=== PATIENT | female | born 1965 | race Caucasian/White ===

== ENCOUNTER → 2020-10-26 | Outpatient (CLI) | payer BC | END | disposition home or self-care (01) | LOC: CVU 11:39 | PROVIDERS: ATTEND Specialist | DX: C81.91 Hodgkin lymphoma, unspecified, lymph nodes of head, face, and neck (principal); Z79.899 Other long term (current) drug therapy | CPT/HCPCS: 93306; 93356; 94010; 94726; 94729 ==

== ENCOUNTER 2020-11-06 07:47 | Day surgery (SDC) | payer BC ==
[~2020-11-06] VITALS: Ht 182.9 cm; Wt 74.7 kg
[~2020-11-06 07:47] MED LIST: BUPIVACAINE/PF-EPI 0.5% 1:200K ONE; Fish Oil PO; HEPARIN 1,000 UNITS/ML, 10ML ONE; Iron PO; MULT-449 PO; Vitamin D PO
[2020-11-06 08:24] VITALS: BP 118/82
[2020-11-06] MEDS ORDERED: CHLORHEXIDINE 15 ML UDC MM ONE (08:30)
[2020-11-06] MEDS ORDERED: LACTATED RINGERS 1,000 ML IV SCH (08:30)
[2020-11-06] MEDS ORDERED: CHLORHEXIDINE 15 ML UDC ONE (08:31)
[2020-11-06] MEDS ORDERED: FENTANYL PF 250 MCG/5ML ONE (09:30)
[2020-11-06] MEDS ORDERED: CEFAZOLIN 1,000 MG ONE (09:55)
[2020-11-06] MEDS ORDERED: ONDANSETRON 2MG/ML, 2ML ONE (09:55)
[2020-11-06] MEDS ORDERED: PROPOFOL 50 ML ONE (10:02)
[2020-11-06] MEDS ORDERED: HYDROmorphone 1 MG/ML, 1ML INJ IVPush PRN (11:00)
[2020-11-06] MEDS ORDERED: PROMETHAZINE 25 MG/ML, 1ML IVPush PRN (11:00)
[2020-11-06] MEDS ORDERED: hydrALAzine 20 MG/ML, 1ML IV PRN (11:00)
[2020-11-06] MEDS ORDERED: EPHEDRINE 50 MG/ML, 1ML IVPush PRN (11:00)
[2020-11-06] MEDS ORDERED: ACETAMINOPHEN 325 MG TABLET PO PRN (11:00)
[2020-11-06] MEDS ORDERED: MEPERIDINE/PF 25MG/0.5ML IVPush PRN (11:00)
[2020-11-06] MEDS ORDERED: FENTANYL PF 100 MCG/2ML IV PRN (11:00)
[2020-11-06] MEDS ORDERED: HALOPERIDOL 5 MG/ML IV PRN (11:00)
[2020-11-06] MEDS ORDERED: LABETALOL 5MG/ML, 20ML IV PRN (11:00)
[2020-11-06] MEDS ORDERED: ONDANSETRON 2MG/ML, 2ML IVPush PRN (11:00)
== END 2020-11-06 12:00 | disposition home or self-care (01) ==
LOC: OUT 07:47
PROVIDERS: ATTEND Surgery
DX: C81.70 Other Hodgkin lymphoma, unspecified site (principal); F17.210 Nicotine dependence, cigarettes, uncomplicated; Z72.89 Other problems related to lifestyle; Z79.899 Other long term (current) drug therapy; Z98.890 Other specified postprocedural states
CPT/HCPCS: 36561; 76937; 77001; C1788; J0690; J2405; J2704; J3010; J7120; J1644